=== PATIENT | female | born 1940 | race Caucasian/White ===

== ENCOUNTER → 2016-12-22 | Outpatient (CLI) | payer MEDICARE, BC ==
[~2016-12-22] VITALS: Ht 149.9 cm; Wt 58.6 kg
[~2016-12-22] MED LIST: ACET650T59 PO; AMLO5TAB66 PO; ASPI-715 PO; ATEN-36 PO; CYAN1TAB46 PO; ESTR2TAB23 PO; FAMC250T2 PO; FENO160T9 PO; FISH1CAP29 PO; IBUP-1324 PO; IRON150C8; LEVE500T18 PO; OMEP-29 PO; POTA99TA9 PO; REGADENOSON 0.4mg/5ml INJECTION IV ONE; ROSU40TA8 PO; SALINE FLUSH 10ml SYRINGE ONE; [UNRECOGNIZED DRUG - CODE] PO
--- NOTE | 2016-12-23 23:04 | CVPROF ---
DATE OF PROCEDURE: 12/22/2016 MYOCARDIAL PERFUSION SCAN: Ms. Finney exercised on a standard Gilbert protocol for a total of 3 minutes and 58 seconds. Resting blood pressure was 146/88. Resting heart rate was 64. She exercised to a heart rate of 139 which represents 95% of her maximum predicted heart rate. Her maximum blood pressure was 230/95. Her baseline EKG shows LVH with mild strain pattern. With exercise, her ST's did depress in the inferior and lateral leads to [address] segment depression. This is most likely due to hypertension and not ischemia. She was given 13.2 mCi of technetium-99 Myoview for the rest portion of the study and 35.2 mCi of Tc-99m Myoview for the stress portion of the study. Scintigraphically, she was imaged post exercise and again at rest. Post-exercise views show no evidence of perfusion defects. Rest views were also normal. Ejection fraction was between 65 and 75%. No wall motion abnormalities were noted. CONCLUSION 1. Clinically negative for ischemia. 2. Electrocardiographically positive for ischemia though most likely due to hypertensive response to exercise. 3. Hypertensive response to exercise. 4. Good exercise tolerance for age. 5. Scintigraphically negative for ischemia with a well-preserved ejection fraction between 65 and 75%. No wall motion abnormalities noted. Normal scintigraphic study with hypertensive responses, EKG changes. [facility]
== END ==
LOC: IMA 08:42
PROVIDERS: ATTEND Internal Medicine Cardiovascular Disease
DX: I37.1 Nonrheumatic pulmonary valve insufficiency (principal); R94.39 Abnormal result of other cardiovascular function study
CPT/HCPCS: 78452; 93017; A9502